=== PATIENT | male | born 1980 | race Hispanic/Latino ===

== ENCOUNTER 2016-08-01 03:54 | Emergency (ER) | payer SELFPAY ==
[2016-08-01 04:08] VITALS: BP 134/98
[2016-08-01 06:52] LABS: Bilirubin,Urine NEG (Negative); Blood,Urine NEG (Negative); Ketones,Urine NEG (Negative); Leukocyte Esterase,Urine NEG (Negative); Mucus,Urine 3+ /HPF; Nitrite,Urine NEG (Negative); Urobilinogen,Urine < 2.0 mg/dL (<2.0)
== END 2016-08-01 09:45 | disposition left against medical advice (07) ==
LOC: ED 03:54
DX: R36.9 Urethral discharge, unspecified (principal); R30.9 Painful micturition, unspecified; Z53.21 Procedure and treatment not carried out due to patient leaving prior to being seen by health care provider
CPT/HCPCS: 81001

== ENCOUNTER 2020-03-30 10:10 | Emergency (ER) | payer SELFPAY ==
--- NOTE | 2020-03-30 10:52 | Emergency Department Report ---
<DARIAN DE DIOS - Last Filed: 03/30/20 13:42> ED Psych HPI - General Chief Complaint: Psych Stated Complaint: MH EVAL Time Seen by Provider: 03/30/20 10:26 Source: EMS Mode of arrival: Ambulatory - History of Present Illness Initial Comments: Patient is a 39-year-old male who has been having some suicidal thoughts with no definite plan for approximately 1 week. Patient has a previous suicide attempt in the past. Patient states he just is feeling down worthless and has is having thoughts that he does not want to live anymore. He did ment ion this to his therapist and was referred to our facility for medical clearance. Patient denies any homicidal ideations. He denies any auditory or visual hallucinations. States he is not taking any medications for psychiatric illnesses at this time and denies alcohol and drug use. - Related Data Home Medications Medication Instructions Recorded Confirmed Last Taken No Known Home Medications [No 10/08/14 10/08/14 Unknown Reported Home Medications] Allergies Allergy/AdvReac Type Severity Reaction Status Date / Time No Known Allergies Allergy Unverified 10/08/14 04:06 ED Review of Systems Comment: All other systems reviewed and negative ED Past Medical Hx - Past Medical History Previous Medical History?: Yes Hx Psychiatric Treatment: Yes (Depression, Bipolar Disorder, Antisocial Personality Disorder) Additional medical history: Hep C - Surgical History Past Surgical History?: Yes - Social History Smoking Status: Current Every Day Smoker Substance Use Type: None - Medications Home Medications: Home Medications Medication Instructions Recorded Confirmed Last Taken Type No Known Home Medications [No 10/08/14 10/08/14 Unknown History Reported Home Medications] ED Physical Exam - General Limitations: No Limitations General appearance: alert, in no apparent distress - Head Head exam: Present: atraumatic, normocephalic - Eye Eye exam: Present: normal appearance - ENT ENT exam: Present: mucous membranes moist - Neck Neck exam: Present: normal inspection - Respiratory Respiratory exam: Present: normal lung sounds bilaterally. Absent: respiratory distress, wheezes, rales, rhonchi - Cardiovascular Cardiovascular Exam: Present: regular rate, normal rhythm. Absent: normal heart sounds, systolic murmur, diastolic murmur, rubs, gallop - GI/Abdominal GI/Abdominal exam: Present: soft, normal bowel sounds. Absent: distended, tenderness, guarding - Rectal Rectal exam: Present: deferred - Extremities Exam Extremities exam: Present: normal inspection - Back Exam Back exam: Present: normal inspection - Neurological Exam Neurological exam: Present: alert, oriented X3 - Psychiatric Psychiatric exam: Present: normal affect, depressed - Skin Skin exam: Present: warm, dry, intact, normal color. Absent: rash ED Course - Reevaluation(s) Reevaluation #1: 03/30/20 13:41 DANA PEREIRA Male : 1980 MedRec# [id number] 03/30/20 13:06 - Microwave Radio Technician's Note by AMARILIS LYNN Acct Num: [id number] : 1980 Patient Age: 39 MENTAL HEALTH ASSESSMENT COMPLETED: Pt is a 39 year old male; Per triage note, "Pt reports SI x 2 weeks with increase in thoughts but no specific plan. EMS reports 2 prior suicide attempts "years ago" by overdosing (age 19, age 33)." Pt resides "on [facility] in [place], [place]... it's like a senior living type thing." Pt reports, "I was paying rent; I had a job until a couple of weeks ago at [employer]." Pt reports that he "len quit; I walked out because I was having real bad anxiety that people were talking about me and trying to get me fired; so, I left." Pt reports that he has been arrested several times for drug charges and shoplifting; "I was just released in October of this year; they arranged for me to stay there when I got out." Pt reports no charges of violent charges. P t reports that he has not used any substance since being released in October 2019. Pt tox is negative for all substances. "This is my first time being clean in a long time, and I want to get better and do the right thing and I see now why I use; it's to cope with my dying." "I didn't like the person that I had become, and I am really trying to get help and educate myself. [facility] has helped me so much; I think it's time to get on medications, but I dont want any narcotics and nothing addictive. My had me going to doctors and told me what to say so I could get pills and give them to her; I dont think the diagnosis were accurate. I went to Dr. Mcintosh, and you saw what happened with him; he would write prescriptions for anything. I dont want that. I want real help." Pt reports active depression anxiety and suicidal thoughts. Pt reports he was referred by his outpatient therapist for an evaluation for inpatient treatment. "I was talking to one of my counselors [place] [address] in my one on one session so I could start learning to cope with my grieving instead of using drugs. The thing that gets me is this anxiety; I told her I was feeling like giving up. I told her I was getting tired and thinking about being and killing myself instead of keeping to fight." Pt reports fighting the anxiety daily as one of the main triggers for suicidality; and "I know this is crazy, but I have these thoughts that I'm on a TV show and people know too much about me... I have to fight it everyday, and I am getting so tired. I am scared it's getting really bad and I'm going to go out of reality. I have huge highs and very low lows; I don't know if it's a mental problem or because my or all the drugs since I've taken since she ." Pt reports he is afraid, "Michelle tried to commit suicide twice in my past, and the thoughts about not wanting to be here anymore are starting, and I'm scared I will take a bottle of pills to overdose like last time. I really want to get help." Pt is at risk of harming hi mself; recommend 1013 and inpatient stabilization. Pt denies any thoughts or plans of harming others. Pt has been calm and cooperative throughout the assessment. Pt is alert and oriented x 4. Pt reports that he is experiencing paranoia that resulted in his walking off of his job; "I thought they were after me and trying to conspire to get me fired." Pt reports that he experience delusions daily that he "tries to fight, but it's getting exhausting." "The voices tell me I'm on a reality TV show and people know too much about me or the people are after me." Pt expressed that the paranoia, anxiety and delusions are the main triggers for the suicidal thoughts; "I can't fight them anymore." Pt is calm, cooperative with no aggression. Pt has good concentration, good memory and good attention. Pt reports that he carries a "mental health diagnosis in my 20s from [place], but I can't remember what they said. In 2007 i went to a doctor, and they said I had Bipolar, AntiSocial Disorder and Anxiety. The last doctor I saw was Dr. Gutierrez in 2011." Pt reports he has been on no psy meds since 2011 "because my , and I was on her insurance; so, I couldn't go to the doctor anymore." "My counselors [place] [address] have encouraged me to see a psychiatrist though." RECOMMENDATION: Pt meets criteria for inpatient/1013 due to SI (thoughts to overdose) and AH and delusions that are impacting the pt's stability. Mental health sap crm developer will begin the referral process for inpatient stabilization. Amarilis Torres LPC Initialized on 03/30/20 13:06 - END OF NOTE Reevaluation #2: 03/30/20 13:42 Patient is medically cleared for further psychiatric evaluation at this time. ED Medical Decision Making - Lab Data Result diagrams: 03/30/20 10:50 03/30/20 10:50 ED Disposition Clinical Impression: Suicidal ideation Disposition: DC-01 TO HOME OR SELFCARE Condition: Stable Instructions: Suicidal Feelings: How to Help Yourself Additional Instructions: Outpatient COMMUNITY Behavioral Health Resources: [facility] ([facility]) [address] [place] [address] / [phone] Friday thru Friday - 8am - 5pm [facility] Address: [address] [place] [address] Friday thru Friday- 7am-2pm [facility] Address: [address] [place] [address] Friday thru Friday: 8:30AM-5PM CRISIS RESOURCES [place] Crisis Line: Suicide Prevention Line: Crisis Text Line: Text START to [phone] Emergency: 911 Referrals: PRIMARY CARE, [Primary Care Provider] - 3-5 Days <GREGG DO - Last Filed: 03/31/20 13:27> ED Review of Systems ROS: Stated complaint: MH EVAL Other details as noted in HPI ED Course Vital Signs 03/30/20 03/30/20 03/31/20 10:23 20:15 01:47 Temperature 97.9 F 98.6 F 97.9 F Pulse Rate 90 82 67 Respiratory 16 18 16 Rate Blood Pressure 134/97 Blood Pressure 105/78 122/83 [Left] O2 Sat by Pulse 94 96 96 Oximetry 03/31/20 08:26 Temperature 97.7 F Pulse Rate 66 Respiratory 20 Rate Blood Pressure Blood Pressure 118/84 [Left] O2 Sat by Pulse 96 Oximetry ED Medical Decision Making - Lab Data Result diagrams: 03/30/20 10:50 03/30/20 10:50 Critical care attestation.: If time is entered above; I have spent that time in minutes in the direct care of this critically ill patient, excluding procedure time. ED Disposition Is pt being admited?: No Does the pt Need Aspirin: No
[2020-03-30 11:29] LABS: Basophils % (Auto) 0.4 % (0.0-1.8); Eosinophils # (Auto) 0.2 K/mm3 (0.0-0.4); Eosinophils % (Auto) 2.3 % (0.0-4.3); Hematocrit 47.2 % (35.5-45.6); Hemoglobin 16.2 gm/dl (11.8-15.2); Lymphocytes # (Auto) 2.9 K/mm3 (1.2-5.4); Lymphocytes % (Auto) 30.1 % (13.4-35.0); Mean Corpuscular HGB Conc 34 % (32-34); Mean Corpuscular Volume 98 fl (84-94); Monocytes # (Auto) 0.8 K/mm3 (0.0-0.8); Monocytes % (Auto) 8.1 % (0.0-7.3); Platelet Count 284 K/mm3 (140-440); Red Blood Count 4.84 M/mm3 (3.65-5.03); Red Cell Distribution Width 13.3 % (13.2-15.2)
[2020-03-30 11:50] LABS: Bilirubin,Urine NEG (Negative); Blood,Urine NEG (Negative); Color,Urine Yellow (Yellow); Mucus,Urine FEW /HPF; Protein,Urine <15 mg/dL mg/dL (Negative)
[2020-03-30 11:52] LABS: BUN/Creatinine Ratio 23; Blood Urea Nitrogen 23 mg/dL (9-20); Calcium 9.4 mg/dL (8.4-10.2); Hemolysis Index 20
[2020-03-30 11:58] LABS: Amphetamine Screen,Urine Negative; Benzodiazepines Screen,Urine Negative; Cannabinoid Screen,Urine Negative; Cocaine Screen,Urine Negative; Methadone Screen,Urine Negative; Opiate Screen,Urine Negative
[2020-03-31 08:27] VITALS: BP 118/84
--- NOTE | 2020-03-31 11:03 | Consultation ---
History of Present Illness - Reason for Consult Consult date: 03/31/20 Reason for consult: suicidal thoughts - History of Present Psychiatric Illness Eduar Haque is a 39y/o male who states he came to the hospital for suicidal thoughts. During my interview with the patient, he says he was talking to one of his counselors and just lost his job. He says "I was telling them I was having thoughts of not living." He says they told him he needed to go to the hospital. The patient denies SI/HI at present and states that he "would like outpatient resources for the [facility]." He says "I got howie in God and not going to do that again." The patient also denies hallucinations of any kind. He says his " used to go around to hospitals and get prescriptions. She coached me on how to do it." The patient denies any illicit drug use, alcohol or nicotine. He says he has a history of "depression, anxiety, and antisocial personality disorder." He then says "but I don't know how much of that is real because like I said, my coached me on what to say." He says "If I get out of here early enough I'm gone try to get my job back." PAST PSYCHIATRIC HISTORY Diagnoses: depression, anxiety, and antisocial personality disorder Suicide attempts or Self-harm behavior: twice Prior psychiatric hospitalizations: Yes Substance Abuse history: alcohol Previous psychiatric medications tried: several Outpatient treatment: Yes PAST MEDICAL HISTORY: None reported Family Psychiatric History: None reported or documented SOCIAL HISTORY Marital Status: Living Arrangements: with mother Employment Status: Disabled Access to guns/weapons: None reported Education: high school History of Abuse: None reported Legal History: denies REVIEW OF SYSTEMS Constitutional: Negative for weight loss ENT: Negative for stridor Respiratory: Negative for cough or hemoptysis All other systems reviewed and are negative MENTAL STATUS EXAMINATION General Appearance and Behavior: Age appropriate, good hygiene, wearing appropri ate clothes, good eye contact Cooperation: Participating/engaged, but Guarded Psychomotor Behavior: Psychomotor normal Mood: "good" Affect and affective range: congruent with stated mood Thought Process: logical Thought Content: None Speech: Normal rate, volume and rhythm Suicidal Ideation: Denies Homicidal Ideation: Denies Hallucinations: Denies Delusions: None elicited Impulse Control: Limited Insight and Judgment:Limited insight and judgment Memory: Normal Attention: Normal Orientation: Alert, oriented Assessment and Plan (1) Major Depressive Disorder (2) Non compliant with other medical treatment and regimen Treatment Plan d/c 1013 MEDICATIONS: follow up with outpatient at [facility] Continue previously prescribed medications Risks, benefits and alternatives of medications discussed with the patient, questions answered and consent obtained from patient. PSYCHOTHERAPY: Supportive psychotherapy provided MEDICAL: Per primary team DELIRIUM PRECAUTIONS: Please re-orient patient frequently, keep lights on during the day, and minimize benzodiazepines and opiates as these medications could worsen patient's confusion. SUPERVISING CHEF: Defer to primary DISPOSITION: Do not recommend acute inpatient psychiatric hospitalization at this time. The patient understands that if suicidal thoughts are to reoccur he i s to seek immediate assistance including but not limited to 911/ER or the crisis hotline. The material mixer is to give the patient resources for the [facility] and cognitive behavior therapy The material mixer is to discuss safety plan The patient is to follow up in 7 to 14 days Will sign off. Thank you for the consult. Please contact with any questions and/or concerns. Case staffed with Dr. Hawthorne. Medications and Allergies Allergies Allergy/AdvReac Type Severity Reaction Status Date / Time No Known Allergies Allergy Unverified 10/08/14 04:06 Home Medications Medication Instructions Recorded Confirmed Last Taken Type No Known Home Medications [No 10/08/14 10/08/14 Unknown History Reported Home Medications] Mental Status Exam - Vital signs Last Vital Signs Temp 97.7 F 03/31/20 08:26 Pulse 66 03/31/20 08:26 Resp 20 03/31/20 08:26 BP 118/84 03/31/20 08:26 Pulse Ox 96 03/31/20 08:26 Results Result Diagrams: 03/30/20 10:50 03/30/20 10:50 Abnormal lab results 03/30/20 03/30/20 03/30/20 Range/Units 10:50 10:50 10:50 Hgb 16.2 H (11.8-15.2) gm/dl Hct 47.2 H (35.5-45.6) % MCV 98 H (84-94) fl MCH 33 H (28-32) pg [place] % (Auto) 8.1 H (0.0-7.3) % BUN 23 H (9-20) mg/dL Glucose 105 H (75-100) mg/dL Salicylates < 0.3 L (2.8-20.0) mg/dL Acetaminophen (10.0-30.0) ug/mL 03/30/20 Range/Units 10:50 Hgb (11.8-15.2) gm/dl Hct (35.5-45.6) % MCV (84-94) fl MCH (28-32) pg [place] % (Auto) (0.0-7.3) % BUN (9-20) mg/dL Glucose (75-100) mg/dL Salicylates (2.8-20.0) mg/dL Acetaminophen 5.0 L (10.0-30.0) ug/mL All other labs normal.
--- NOTE | 2020-03-31 13:26 | Emergency Department Report ---
Blank Doc - Documentation Documentation: Patient was seen and examined by psych. Per the psych team's evaluation the p atient can be discharged home
== END 2020-03-31 13:40 | disposition home or self-care (01) ==
LOC: ED 10:10
DX: R45.851 Suicidal ideations (principal); F31.9 Bipolar disorder, unspecified; F17.200 Nicotine dependence, unspecified, uncomplicated
CPT/HCPCS: 36415; 80048; 80307; 80320; 81001; 85025; G0480